=== PATIENT | female | born 1955 | race Caucasian/White ===

== ENCOUNTER → 2017-07-26 | Outpatient (CLI) | payer BC | LOC: BMCIMAGING 12:11 | PROVIDERS: ATTEND Internal Medicine | DX: Z12.31 Encounter for screening mammogram for malignant neoplasm of breast (principal) ==

== ENCOUNTER → 2017-08-04 | Outpatient (CLI) | payer BC | LOC: BMCIMAGING 10:27 | PROVIDERS: ATTEND Internal Medicine | DX: R92.8 Other abnormal and inconclusive findings on diagnostic imaging of breast (principal) ==

== ENCOUNTER → 2017-09-13 | Outpatient (CLI) | payer BC | LOC: BMCIMAGING 09:49 | PROVIDERS: ATTEND Internal Medicine | DX: Z13.820 Encounter for screening for osteoporosis (principal); M85.89 Other specified disorders of bone density and structure, multiple sites; M54.9 Dorsalgia, unspecified; Z87.81 Personal history of (healed) traumatic fracture ==

== ENCOUNTER → 2018-09-03 | Outpatient (CLI) | payer BC | LOC: BMCIMAGING 13:17 | PROVIDERS: ATTEND Internal Medicine | DX: Z12.31 Encounter for screening mammogram for malignant neoplasm of breast (principal) ==